=== PATIENT | male | born 1985 | race Caucasian/White ===

== ENCOUNTER 2025-01-30 11:12 | Outpatient (OUT) | payer SELFPAY ==
--- OUTSIDE RECORDS SUMMARY | 2025-01-26 08:20 | XMS_ITS | Encounter Summary ---
Author Organization [facility] Address [address] [place] [address] Care Team Providers Care Hotel Controller Name Role Phone Vimal Shaw MD Unavailable [phone] Vimal Shaw MD Primary Care Provider [phone] Nela Munguia NP Unavailable [phone] Reason for Referral * Consultation (Routine) - Authorized Specialty Diagnoses / Procedures Referred By Edgar valenzuela Referred To Contact Orthopaedic Surgery Diagnoses Acute pain of left knee Nela Munguia NP [address] [place] [address] Phone: tel: fax: Parminder Owen MD [facility] Referrals ONLY fax: Referral ID Status Reason Start Date Expiration Date Visits Requested Visits Authorized [id number] Authorized Specialty Services Required 01/26/2025 07/25/2025 1 1 Encounter Details Date Type Department Care Team (Late st Contact Info) Description 01/26/2025 8:20 AM EDT Office Visit [facility] [address] [place] [address] Nela Munguia NP [address] [place] [address] Acute pain of left knee (Primary Dx); Spondylosis without myelopathy or radiculopathy, lumbosacral region Social History Tobacco Use Types Packs/Day Years Used Date Smoking Tobacco: Every Day Cigars Smokeless Tobacco: Never Alcohol Use Standard Drinks/Week Comments Not Currently 0 (1 standard drink = 0.6 oz pure alcohol) caffeine: more than 4 cups a day AUDIT-C Answer Date Recorded Q1: How often do you have a drink containing alcohol? Never 03/02/2023 Q2: How many drinks containi ng alcohol do you have on a typical day when you are drinking? Patient does not drink Q3: How often do you have si x or more drinks on one occasion? Never 03/02/2023 PHQ-2 Answer Date Recorded Patient Health Questionnaire-2 Score 0 08/24/2023 Sex and Gender Information Value Date Recorded Sex Assigned at Not on file Legal Sex Male 7:16 PM EDT Gender Identity Male 08/06/2022 7:16 PM EDT Sexual Orientation Not on file documented as of this encounter Last Filed Vital Signs Vital Sign Reading Time Taken Comments Blood Pressure 140/78 01/26/2025 8:18 AM EDT Pulse 87 01/26/2025 8:18 AM EDT Temperature 36.6 C (97.9 F) 01/26/2025 8:18 AM EDT Respiratory Rate - - Oxygen Saturation 98% 01/26/2025 8:18 AM EDT Inhaled Oxygen Concentration - - Weight 124 kg (274 lb) 01/26/2025 8:18 AM EDT Height 188 cm (6' 2 ) 01/26/2025 8:18 AM EDT Body Mass Index 35.18 01/26/2025 8:18 AM EDT documented in this encounter Progress Notes * Nela Munguia NP - 01/26/2025 8:20 AM EDT Family Medicine Note Subjective: Chief Complaint: Left knee pain HPI: Jamar Madina Petersherve presents to the office today with complaints of left knee pain. 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 He did go to the emergency department due to pain of the right lower extremity and was ultimately discharged with Zanaflex. The patientstates that several days later he started to notice pain of the left knee. Gradually the pain became so bad that he started to wear a knee brace that he had at home. He has been taking Tylenol and Zanaflex with mild relief. He reports that the pain is most severe when walking down the stairs. Additionally, he admits to instability of the knee when ambulating. Current Outpatient Medications: amLODIPine-benazepril (Lotrel) 10-40 MG capsule, Take 1 capsule by mouth 1 (one) time each day at the same time, Disp: 90 capsule, Rfl: 1 cyclobenzaprine (Flexeril) 10 MG tablet, Take 10 mg by mouth 3 (three) times a day as needed for muscle spasms, Disp: , Rfl: DULoxetine (Cymbalta) [address] capsule, Take 1 capsule (60 mg) by mouth 1 (one) time each day at the same time, Disp: 90 capsule, Rfl: 1 EPINEPHrine (EpiPen 2-Abram) 0.3 MG/0.3ML injection syringe, inject (0.3MG) by intramuscular route once as needed for anaphylaxis Injection as needed for 30 days, Disp: , Rfl: QUEtiapine (SEROquel) 100 MG tablet, Take 1 tablet (100 mg) by mouth at bedtime, Disp: 30 tablet, Rfl: 5 meloxicam (Mobic) 7.5 MG tablet, Take 1 tablet (7.5 mg) by mouth Daily, Disp: 30 tablet, Rfl: 1 tiZANidine (Zanaflex) 4 MG tablet, Take 1 tablet (4 mg) by mouth in the morning and 1 tablet (4 mg)in the evening and 1 tablet (4 mg) before bedtime., Disp: 90 tablet, Rfl: 1 Medical History: Past Medical History: Diagnosis Date Appendicitis Arthritis Bulging of cervical intervertebral disc Class 2 obesity 04/30/2020 Closed fracture of coccyx (HCC) 01/16/2025 Closed right malleolar fracture 01/16/2025 Edema of hand 01/16/2025 Elbow fracture 01/16/2025 Fall 01/16/2025 Headache 01/16/2025 Hypertension Kidney stones Left ankle sprain 01/16/2025 Left knee sprain 01/16/2025 Leukocytosis 01/16/2025 Lunotriquetral ligament tear 01/16/2025 Migraine Migraine without aura and without status migrainosus, not intractable 10/03/2019 Nausea and vomiting 01/16/2025 Pain in urethra 01/16/2025 Paresthesias in left hand 01/16/2025 Perforated right tympanic membrane on examination 01/16/2025 Postoperative pain of extremity 01/16/2025 Primary insomnia 02/15/2019 Right ankle sprain 01/16/2025 S/P ligament repair 01/16/2025 Seasonal allergies Sinusitis 12/01/2022 Strain of muscle, fascia and tendon of long head of biceps, right arm, initial encounter 01/16/2025 Tonsillitis Urinary catheter in place 01/16/2025 Allergies: Allergies Allergen Reactions Bee Pollen Anaphylaxis Ibuprofen Unknown, Hives and Other Onion Hives Social History: Tobacco Use: Tobacco Use: High Risk (09/07/2024) Patient History Smoking Tobacco Use: Every Day Smokeless Tobacco Use: Never Passive Exposure: Not on file Objective: Vitals: 01/26/25 0818 BP: 140/78 Pulse: 87 Temp: 97.9 ??F TempSrc: Temporal SpO2: 98% Weight: 274 lb Height: 6' 2 Physical Exam Vitals and nursing note reviewed. Constitutional: General: He is not in acute distress. Appearance: Normal appearance. He is not ill-appearing. HENT: Head: Normocephalic and atraumatic. Right Ear: External ear normal. Left Ear: External ear normal. Nose: Nose normal. Mouth/Throat: Mouth: Mucous membranes are moist. Eyes: Extraocular Movements: Extraocular movements intact. Pupils: Pupils are equal, round, and reactive to light. Neck: Vascular: No carotid bruit. Cardiovascular: Rate and Rhythm: Normal rate. Pulses: Normal pulses. Heart sounds: No murmur heard. Pulmonary: Effort: Pulmonary effort is normal. Breath sounds: No wheezing, rhonchi or rales. Abdominal: General: Bowel sounds are normal. There is no distension. Tenderness: There is no abdominal tenderness. Musculoskeletal: Cervical back: Normal range of motion. Left knee: Swelling present. No erythema, ecchymosis, lacerations or crepitus. Decreased range of motion. Tenderness present over the MCL. Normal alignment. Skin: General: Skin is warm and dry. Neurological: General: No focal deficit present. Mental Status: He is alert and oriented to person, place, and time. Psychiatric: Mood and Affect: Mood normal. Behavior: Behavior normal. Judgment: Judgment normal. Assessment: Assess/Plan Problem List Items Addressed This Visit Spondylosis without myelopathy or radiculopathy, lumbosacral region Relevant Medications tiZANidine (Zanaflex) 4 MG tablet Other Visit Diagnoses Acute pain of left knee - Primary Relevant Medications meloxicam (Mobic) 7.5 MG tablet Other Relevant Orders Ambulatory referral to Orthopaedic Surgery The patient was in an accident during a demolition derby and reports left knee pain. He has been utilizing a brace that he had at home to assist with stability and pain. He has been using Zanaflex and Tylenol with mild relief. We did discuss adding Meloxicam to his medication regimen to assist withpain and inflammation. He reportedly had an allergic reaction to ibuprofen in the past, however hasbeen able to tolerate Advil and Aleve with no issues. He will also be referred to orthopaedic surgery for further evaluation. He denies further complaints or concerns at this time. Follow-up: Follow up in about 2 weeks (around 02/09/2025), or if symptoms worsen or fail to improve. documented in this encounter Plan of Treatment Upcoming Encounters Date Type Department Care Team (Late st Contact Info) Description 03/08/2025 1:20 PM EDT Office Visit [facility] [address] [place] [address] Nela Munguia NP [address] [place] [address] Scheduled Referrals Name Type Priority Associated Diagnoses Order Schedule Ambulatory referral to Orthopaedic Surgery Outpatient Referral Routine Acute pain of left knee Expected: 01/26/2025 (Approximate), Expires: 07/26/2025 documented as of this encounter Visit Diagnoses Diagnosis Acute pain of left knee- Primary Spondylosis without myelopathy or radiculopathy, lumbosacral region documented in this encounter Care Teams Hotel Controller Relationship Specialty Start Date End Date Vimal Shaw MD [address] [place] [address] PCP - Medical [facility] 10/23/22 05/24/99 Vimal Shaw MD [address] [place] [address] PCP - General Family Medicine 11/30/22 Nela Munguia NP [address] [place] [address] Nurse Practitioner Pulmonary Disease 07/22/23 documented as of this encounter
--- NOTE | 2025-01-30 | XR_ITS ---
The [address] [address] Patient Name: POPEYE HOGAN MRN: [id number] date: 1985 Sex: M Assigned Patient Location: RAD Current Patient Location: [facility] Accession/Order Number: [id number] Exam Date: 01/30/2025 11:40 Report Date: 01/30/2025 12:20 At the request of: MARLON SCHAFFER DO Procedure: XR knee LT 4V LEFT KNEE - 4 views COMPARISON: None Clinical data: Left knee pain around the patella and medially following injury month ago. AP, lateral, internal oblique and patellar views were obtained. No acute fracture is identified. No dislocation or patellar subluxation is seen. There is no disproportionate joint space narrowing. There is minimal spurring at the patellofemoral. There is a tiny enthesophyte at the insertion of quadriceps tendon. A small amount of joint fluid is seen. There is no focal soft tissue swelling. XR/XR knee LT 4V IMPRESSION: NO ACUTE BONY FINDINGS. Impression dictated by: Julianna Marte M.D. 01/30/2025 12:20 PM Dictation Location: [place] [address] Electronically authenticated by: [id number] Y Date: 01/30/2025 12:20
--- OUTSIDE RECORDS SUMMARY | 2025-01-30 11:14 | XMS_ITS | Encounter Summary ---
Author Organization [facility] Address [address] [place] [address] Care Team Providers Care Electronic Component Processor Name Role Phone Vimal Shaw MD Unavailable Vimal Shaw MD Primary Care Provider [phone] Sommer Gonzalez NP Unavailable Nela Munguia GRINDER SET UP OPERATOR JIG Unavailable [phone] Encounter Details Date Type Department Care Team (Late st Contact Info) Description 08/26/2023 Abstract [facility] [address] [place] [address] Vimal Shaw MD [address] [place] [address] Social History Tobacco Use Types Packs/Day Years [...] on file documented as of this encounter Plan of Treatment Upcoming Encounters Date Type Department Care Team (Late st Contact Info) Description 03/08/2025 1:20 PM EDT Office Visit [facility] [address] [place] [address] Nela Munguia NP [address] [place] [address] documented as of this encounter Visit Diagnoses Not on filedocumented in this encounter Care Teams Electronic Component Processor Relationship Specialty Start Date End Date Vimal Shaw MD [address] [place] [address] PCP - Medical [place] [employer] 10/23/22 05/24/99 Vimal Shaw MD [address] [place] [address] PCP - General Family Medicine 11/30/22 Sommer Gonzalez NP [address] [place] [address] Nurse Practitioner Family Medicine 07/22/23 09/03/24 Nela Munguia NP [address] [place] [address] Nurse Practitioner Pulmonary Disease 07/22/23 documented as of this encounter
--- OUTSIDE RECORDS SUMMARY | 2025-01-30 11:14 | XMS_ITS | Encounter Summary ---
Author Organization [facility] Address [address] [facility] [place] [address] Care Team Providers Care Poker Prop Player Name Role Phone Vimal Shaw MD Unavailable [phone] Vimal Shaw MD Primary Care Provider [phone] Sommer Gonzalez NP Unavailable Nela Munguia NP Unavailable [phone] Encounter Details Date Type Department Care Team (Late st Contact Info) Description 09/24/2023 Abstract [facility] [address] [place] [address] Sommer Gonzalez NP [address] [facility] [place] [address] Social History Tobacco Use Types Packs/Day Years [...] [facility] [address] [place] [address] Nela Munguai NP [address] [place] [address] documented as of this encounter Visit Diagnoses Not on filedocumented in this encounter Care Teams Poker Prop Player Relationship Specialty Start Date End Date Vimal Shaw MD [address] [place] [address] PCP - Medical [place] [employer] 10/23/22 05/24/99 Vimal Shaw MD [address] [place] [address] PCP - General Family Medicine 11/30/22 Sommer Gonzalez NP [address] [place] [address] Nurse Practitioner Family Medicine 07/22/23 09/03/24 Nela Munguia NP [address] [place] [address] Nurse Practitioner Pulmonary Disease 07/22/23 documented as of this encounter
--- OUTSIDE RECORDS SUMMARY | 2025-01-30 11:14 | XMS_ITS | Encounter Summary ---
Author Organization [facility] Address [address] [facility] [place] [address] Care Team Providers Care Framing Consultant Name Role Phone Vimal Shaw MD Unavailable [phone] Vimal Shaw MD Primary Care Provider Sommer Gonzalez NP Unavailable Nela Munguia BAR ROLLER Unavailable [phone] Encounter Details Date Type Department Care Team (Late st Contact Info) Description 07/03/2024 External Result Encounter [facility] External Department Unsolicited Phoebe Eaton, BAR ROLLER [address] [place] [address] Social History Tobacco Use Types Packs/Day Years [...] Description 03/08/2025 1:20 PM EDT Office Visit [facility] [address] [place] [address] Nela Munguia NP [address] [place] [phone] documented as of this encounter Procedures Procedure Name Priority Date/Time Associated Diagnosis Comments XR ANKLE 3+ VIEWS RIGHT 07/03/2024 4:15 PM EST documented in this encounter Results * XR ankle 3+ views right (07/03/2024 4:15 PM EST) Anatomical Region Laterality Modality Lower Extremities, Ankle Right Radiogr aphic Imaging 07/03/2024 4:15 PM EST Impressions 07/03/2024 4:18 PM EST There is a minimally displaced fracture at the tip of the lateral malleolus with accompanying soft tissue swelling. Impression dictated by: Ish Choudhary M.D.07/03/2024 4:15 PM Dictation Location: [place] [address] Transcribed By: [facility] 07/03/24 161 Dictated By: Ish Choudhary II, MD 07/03/241614 Signed By: <Electronically signed by Ish Choudhary II, MD in OV> 07/03/24 1615 Narrative 07/03/2024 4:18 PM EST [facility] Main [address] [address] XRay Report Signed Patient: Jamar Yu MR#: [id number] : 1985 Acct:[id number] Age/Sex: 39 / M ADM Date: 07/03/24 Loc: ER Room: Type: PRE ER Attending Dr: Copies to: Phoebe Eaton APRN Ordering Provider: Phoebe Eaton APRN Date of Service: 07/03/24 XR/XR ankle RT min 3V*: Extremity Injury, Lower XR ankle RT min 3V* 07/03/2024 3:48 PM SIGNS AND SYMPTOMS: Pain and swelling to lateral aspect of the right ankle PROTOCOL: Frontal, lateral, and oblique radiographs of the right ankle COMPARISON: None FINDINGS: There is soft tissue swelling over the lateral malleolus. There is a minimally displaced fracture at the tip of the lateral malleolus. The ankle mortise is preserved. There is plantar and Achilles surface calcaneal spurring. XR/XR ankle RT min 3V* Procedure Note Ish Choudhary MD - 07/03/2024 [facility] Main [place] [address] [place] [address] XRay Report Signed Patient: Jamar Yu BMR#: [id number] : 1985Acct:[id number] Age/Sex: 39 / MADM Date: 07/03/24 Loc: ER Room:Type: PRE ER Attending Dr: Copies to: Phoebe Eaton APRN Ordering Provider: Phoebe Eaton APRN Date of Service: 07/03/24 XR/XR ankle RT min 3V*: Extremity Injury, Lower XR ankle RT min 3V* 07/03/2024 3:48 PM SIGNS AND SYMPTOMS: Pain and swelling to lateral aspect of the right ankle PROTOCOL: Frontal, lateral, and oblique radiographs of the right ankle COMPARISON: None FINDINGS: There is soft tissue swelling over the lateral malleolus. There is aminimally displaced fracture at the tip of the lateral malleolus. The ankle mortise is preserved.There is plantar and Achilles surface calcaneal spurring. XR/XR ankle RT min 3V* IMPRESSION: There is a minimally displaced fracture at the tip of the lateralmalleolus with accompanying soft tissue swelling. Impression dictated by: Ish Choudhary M.D.07/03/2024 4:15 PM Dictation Location: [place] [address] Transcribed By: [facility] 07/03/24 1615 Dictated By: Ish Choudhary II, MD 07/03/24 1615 Signed By: <Electronically signed by Ish Choudhary II, MD inOV> 07/03/24 1615 Phoebe Mayo Uma BAR ROLLER IMG XR PROCEDURES Final Resu lt documented in this encounter Visit Diagnoses Not on filedocumented in this encounter Care Teams Framing Consultant Relationship Specialty Start Date End Date Vimal Shaw MD [address] [place] [address] PCP - Medical [place] [employer] 10/23/22 05/24/99 Vimal Shaw MD [address] [place] [address] PCP - General Family Medicine 11/30/22 Sommer Gonzalez NP [address] [place] [address] Nurse Practitioner Family Medicine 07/22/23 09/03/24 Nela Munguia NP [address] [place] [address] Nurse Practitioner Pulmonary Disease 07/22/23 documented as of this encounter
--- OUTSIDE RECORDS SUMMARY | 2025-01-30 11:14 | XMS_ITS | Encounter Summary ---
Author Organization [facility] Address [address] [place] [address] Care Team Providers Care Instrument Repairer Name Role Phone Vimal Shaw MD Unavailable [phone] Vimal Shaw MD Primary Care Provider [phone] Nela Munguia EMPLOYMENT SERVICE SPECIALIST Unavailable [phone] Encounter Details Date Type Department Care Team (Late st Contact Info) Description 01/16/2025 Patient Outreach [facility] POPULATION [facility] [address] [place] [address] Shilpa Justice LSW [address] [place] [address] Social History Tobacco Use Types Packs/Day Years [...] on file documented as of this encounter Progress Notes * [facility] - 01/16/2025 3:35 PM EDT Images from the original note were not included. 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 Pt was worried since he has a hx of compartment syndrome. Contacted pt for ER TCM and he states he is doing better just sore. Reports he was having spasms in leg so wanted to get checked. Reports xrays of knee, ankle and leg completed. He was given Ativan and Dilaudid in ER and rx for Flexeril for discharge. He is taking this and reports it's helping. Declines need for ERFU appt at this time stating he will call the office later this week if he is not feeling better. Reports only scratches and no open deep wounds. Denies need for CCM. Flowsheet Row [facility] Information ED, Hospital or Detention Facility Discharge? 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 Not applicable [Forwarding to clinicalto add rx] Is the patient having any side effects they believe may be caused by any medication additions or changes? No Does the patient have all medications ordered at discharge? Yes Nursing Interventions No intervention needed Appointments Does the patient have a primary care provider? 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 Pt was worried since he has a hx of compartment syndrome. Contacted pt for ER TCM and he states he is doing better just sore. Reports he was having spasms in leg so wanted to get checked. Reports xrays of knee, ankle and leg completed. He was given Ativan and Dilaudid in ER and rx for Flexeril for discharge. He is taking this and reports it's helping. Declinesneed for ERFU appt at this time stating he will call the office later this week if he is not feeling better. Call End Time 1550 * Ary Miller RN - 01/16/2025 3:35 PM EDT Flexeril added * Nela Munguia NP - 01/16/2025 3:35 PM EDT Noted documented in this encounter Miscellaneous Notes * Addendum Note - Ayr Miller RN - 01/16/2025 3:35 PM EDTAddended by: ARY MILLER on: 01/16/2025 04:02 PM Modules accepted: Orders documented in this encounter Plan of Treatment Upcoming Encounters Date Type Department Care Team (Late st Contact Info) Description 03/08/2025 1:20 PM EDT Office Visit [facility] [address] [place] [address] Nela Munguia NP [address] [place] [address] documented as of this encounter Visit Diagnoses Diagnosis Hypertension, unspecified type- Primary Vitamin D deficiency documented in this encounter Care Teams Instrument Repairer Relationship Specialty Start Date End Date Vimal Shaw MD [address] [place] [address] PCP - Medical [place] [employer] 10/23/22 05/24/99 Vimal Shaw MD [address] [place] [address] PCP - General Family Medicine 11/30/22 Nela Munguia NP [address] [place] [address] Nurse Practitioner Pulmonary Disease 07/22/23 documented as of this encounter
--- OUTSIDE RECORDS SUMMARY | 2025-01-30 11:14 | XMS_ITS | Encounter Summary ---
Author Organization [facility] Address [address] [place] [address] Care Team Providers Care Litigation Counsel Name Role Phone Vimal Shaw MD Unavailable [phone] Vimal Shaw MD Primary Care Provider [phone] Nela Munguia WATCH TECHNICIAN Unavailable [phone] Encounter Details Date Type Department Care Team (Late st Contact Info) Description 01/16/2025 Abstract [facility] [address] [place] [address] Vimal Shaw MD [address] [place] [address] Social History Tobacco Use Types Packs/Day Years [...] Visit [facility] [address] [place] [address] Nela Munguia, WATCH TECHNICIAN [address] [place] [address] documented as of this encounter Visit Diagnoses Not on filedocumented in this encounter Care Teams Litigation Counsel Relationship Specialty Start Date End Date Vimal Shaw MD [address] [place] [address] PCP - Medical [place] [employer] 10/23/22 05/24/99 Vimal Shaw MD [address] [place] [address] PCP - General Family Medicine 11/30/22 Nela Munguia WATCH TECHNICIAN [address] [place] [address] Nurse Practitioner Pulmonary Disease 07/22/23 documented as of this encounter
--- OUTSIDE RECORDS SUMMARY | 2025-01-30 11:14 | XMS_ITS | Encounter Summary ---
Author Organization [facility] Address [address] [place] [place] [address] Care Team Providers Care Refuge Manager Name Role Phone Vimal Shaw MD Unavailable Vimal Shaw MD Primary Care Provider [phone] Sommer Gonzalez NP Unavailable Nela Munguia UNDERCOAT SPRAYER Unavailable [phone] Encounter Details Date Type Department Care Team (Late st Contact Info) Description 07/04/2024 Abstract [facility] [address] [place] [address] Vimal Shaw MD [address] [place] [address] Social History Tobacco Use Types Packs/Day Years [...] [facility] [address] [place] [address] Nela Munguia NP [address] [place] [address] documented as of this encounter Visit Diagnoses Not on filedocumented in this encounter Care Teams Refuge Manager Relationship Specialty Start Date End Date Vimal Shaw MD [address] [place] [address] PCP - Medical [place] [employer] 10/23/22 05/24/99 Vimal Shaw MD [address] [place] [place] [address] PCP - General Family Medicine 11/30/22 Sommer Gonzalez NP [address] [place] [address] Nurse Practitioner Family Medicine 07/22/23 09/03/24 Nela Munguia NP [address] [place] [address] Nurse Practitioner Pulmonary Disease 07/22/23 documented as of this encounter
--- OUTSIDE RECORDS SUMMARY | 2025-01-30 11:14 | XMS_ITS | Clinical Summary ---
Author Organization [facility] Healthcare Address [address] [place] [address] Care Team Providers Care Tapper Bit Name Role Phone Vimal Shaw MD Unavailable [phone] Vimal Shaw MD Primary Care Provider [phone] Nela Munguia BUSINESS DEVELOPMENT ENGINEER Unavailable [phone] Allergies Active Allergy Reactions Criticality Noted Date Comments Bee Pollen Anaphylaxis High 08/18/2022 Ibuprofen Unknown,Hives,Other 04/03/2014 Onion Hives 08/18/2022 Medications EPINEPHrine (EpiPen 2-Abram) 0.3 MG/0.3ML injection syringe inject (0.3MG) by intramuscular route once as needed for anaphylaxis Injection as needed for 30 days 10/07/19 13 Active amLODIPine-juan manuel zepril (Lotrel) 10-40 MG capsuleIndicati ons:Hypertensio n, unspecified type Take 1 capsule by mouth 1 (one) time each day at the same time 90 capsule 1 09/08/19 25 025 Active DULoxetine (Cymbalta) [address] capsuleIndicati ons:Anxiety Take 1 capsule (60 mg) by mouth 1 (one) time each day at the same time 90 capsule 1 09/08/19 025 Active QUEtiapine (SEROquel) 100 MG tabletIndicatio ns:Primary insomnia Take 1 tablet (100 mg) by mouth at bedtime 30 tablet 5 10/11/19 25 025 Active cyclobenzaprine (Flexeril) 10 MG tablet Take 10 mg by mouth 3 (three) times a day as needed for muscle spasms 01/16/20 Active meloxicam (Mobic) 7.5 MG tabletIndicatio ns:Acute pain of left knee Take 1 tablet (7.5 mg) by mouth Daily 30 tablet 1 01/27/20 25 025 Active tiZANidine (Zanaflex) 4 MG tabletIndicatio ns:Spondylosis without myelopathy or radiculopathy, lumbosacral region Take 1 tablet (4 mg) by mouth in the morning and 1 tablet (4 mg) in the evening and 1 tablet (4 mg) before bedtime. 90 tablet 1 01/27/20 025 Active tiZANidine (Zanaflex) 4 MG tabletIndicatio ns:Spondylosis without myelopathy or radiculopathy, lumbosacral region Take 1 tablet (4 mg) by mouth in the morning and 1 tablet (4 mg) in the evening and 1 tablet (4 mg) before bedtime. 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 without myelopat hy or radiculopathy, lumbosacral region 12/01/2022 Intractable migraine without aura and with status migrainosus 07/13/2020 Otitis externa in other dise ases classified elsewhere, right ear 03/09/2020 Intractable episodic cluster headache 10/03/2019 Other chronic pain 09/16/2019 Vitamin D deficiency 08/30/2019 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 07/08/2019 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 Migraine 04/23/2018 Morbid obesity 11/12/2017 Anxiety 09/22/2017 Insomnia 09/22/2017 Hypertriglyceridemia 10/08/2016 Hypertension 02/28/2016 Resolved Problems Problem Noted Date Diagnosed Date Resolved Date Closed fracture of coccyx 01/16/2025 Closed right malleolar fracture 01/16/2025 01/16/2025 Edema of hand 01/16/2025 01/16/2025 Paresthesias in left hand 01/16/2025 Elbow fracture 01/16/2025 01/16/2025 Fall 01/16/2025 01/16/2025 Laceration of finger of left hand without foreign body without damage to nail 01/16/2025 08/09/2024 Left knee sprain 01/16/2025 01/16/2025 Leukocytosis 01/16/2025 01/16/2025 Lunotriquetral ligament tear 01/16/2025 01/16/2025 Pain in urethra 01/16/2025 01/16/2025 Perforated right tympanic me mbrane on examination 01/16/2025 01/16/2025 Headache 01/16/2025 01/16/2025 Postoperative pain of extremity 01/16/2025 01/16/2025 Left ankle sprain 01/16/2025 01/16/2025 Right ankle sprain 01/16/2025 S/P ligament repair 01/16/2025 01/17/20 Strain of muscle, fascia and tendon of long head of biceps, right arm, initial encounter 01/16/2025 01/16/[address] 01/16/2025 Nausea and vomiting 01/16/2025 01/17/20 Right lower quadrant abdominal pain 01/16/2025 01/16/2025 Obesity (BMI 30-39.9) 12/01/20222022 Obesity, morbid, BMI 40.0-49.9 12/01/2022 12/01/2022 Sinusitis 12/01/2022 12/01/2022 Class 2 obesity 04/30/2020 12/01/2022 Migraine without aura and wi thout status migrainosus, not intractable 10/03/2019 12/01/2022 Primary insomnia 02/15/2019 12/01/2022 Nausea 03/11/2017 12/01/2022 Right upper quadrant pain 03/11/2017 Class 2 obesity 02/18/2017 12/01/2022 Sprain of MCP joint of hand 04/04/2014 12/01/2022 Encounters Date Type Department Care Team Description 01/26/2025 8:20 AM EDT Office Visit [facility] [address] [place] [address] Nela Munguia NP Acute pain of left knee (Primary Dx); Spondylosis without myelopathy or radiculopathy, lumbosacral region 01/26/2025 Bamboo flowsheet [facility] [address] [place] [address] Nela Munguia NP 01/26/2025 Travel 01/20/2025 Refill [facility] [address] [place] [address] Nela Munguia NP Spondylosis without myelopathy or radiculopathy, lumbosacral region 01/16/2025 Patient Outreach [facility] [address] [place] [address] Shilpa Justice LSW 01/16/2025 Telephone [facility] [address] [place] [address] Vimal Shaw MD ER Follow-up 01/16/2025 Abstract [facility] [address] [place] [address] Vimal Shaw MD 11/17/2024 Refill [facility] [address] [place] [address] Cecile De La Rosa MA Spondylosis without myelopathy or radiculopathy, lumbosacral region from Last 3 Months Immunizations Immunization Administration Dates Next Due Influenza, seasonal, intradermal, preservative f ree 03/31/2018,02/18/2017 Tdap 10/10/2018 Family History Medical History Relation Name Comments Hypertension Father Stroke Mother Relation Name Status Comments Father Alive Mother Alive Social History Tobacco Use Types Packs/Day Years Used Date Smoking Tobacco: Every Day Cigars Smokeless Tobacco: Never Tobacco Cessation:Ready to Q uit: Not Asked; Counseling Given: Not Answered Alcohol Use Standard Drinks/Week Comments Not Currently [...] PM EDT Sexual Orientation Not on file Last Filed Vital Signs Vital Sign Reading Time Taken Comments Blood Pressure 140/78 01/26/2025 8:18 AM EDT Pulse 87 01/26/2025 8:18 AM EDT Temperature 36.6 C (97.9 F) 01/26/2025 8:18 AM EDT Respiratory Rate 20 09/07/2024 1:32 PM EDT Oxygen Saturation 98% 01/26/2025 8:18 AM EDT Inhaled Oxygen Concentration - - Weight 124 kg (274 lb) 01/26/2025 8:18 AM EDT Height 188 cm (6' 2 ) 01/26/2025 8:18 AM EDT Body Mass Index 35.18 01/26/2025 8:18 AM EDT Plan of Treatment Upcoming Encounters Date Type Department Care Team (Late st Contact Info) Description 03/08/2025 1:20 PM EDT Office Visit [facility] [address] [place] [address] Nela Munguia, BUSINESS DEVELOPMENT ENGINEER [address] [place] [address] Health Maintenance Due Date Last Done Comments Influenza Vaccine (#1) 2025 03/31/2018, 2016 Postponed from 01/23/2025 (Patient Refused) Insurance [employer] Care Teams Tapper Bit Relationship Specialty Start Date End Date Vimal Shaw MD [address] [place] [address] PCP - Medical [place] [employer] 10/23/22 05/24/99 Vimal Shaw MD [address] [place] [address] PCP - General Family Medicine 11/30/22 Nela Munguia BUSINESS DEVELOPMENT ENGINEER [address] [place] [address] Nurse Practitioner Pulmonary Disease 07/22/23
--- OUTSIDE RECORDS SUMMARY | 2025-01-30 11:14 | XMS_ITS | Encounter Summary ---
Author Organization [facility] Address [address] [facility] [place] [address] Care Team Providers Care Canine Enforcement Officer Name Role Phone Vimal Shaw MD Unavailable [phone] Vimal Shaw MD Primary Care Provider [phone] Sommer Gonzalez NP Unavailable Nela Munguia NP Unavailable [phone] Encounter Details Date Type Department Care Team (Late st Contact Info) Description 11/19/2023 Abstract [facility] [address] [place] [address] Sommer Gonzalez NP [address] [facility] [place] [address] Social History Tobacco Use Types Packs/Day Years [...] [facility] [address] [place] [address] Nela Munguia NP [address] [place] [address] documented as of this encounter Visit Diagnoses Not on filedocumented in this encounter Care Teams Canine Enforcement Officer Relationship Specialty Start Date End Date Vimal Shaw MD [address] [place] [address] PCP - Medical [place] [employer] 10/23/22 05/24/99 Vimal Shaw MD [address] [place] [address] PCP - General Family Medicine 11/30/22 Sommer Gonzalez NP [address] [place] [address] Nurse Practitioner Family Medicine 07/22/23 09/03/24 Nela Munguia NP [address] [place] [address] Nurse Practitioner Pulmonary Disease 07/22/23 documented as of this encounter
--- OUTSIDE RECORDS SUMMARY | 2025-01-30 11:14 | XMS_ITS | Encounter Summary ---
Author Organization [facility] Address [address] [place] [address] Care Team Providers Care Lap Layer Name Role Phone Vimal Shaw MD Unavailable [phone] Vimal Shaw MD Primary Care Provider [phone] Nela Munguia PAINTER SET Unavailable [phone] Reason for Visit * Reason Onset Date Comments ER Follow-up 01/16/2025 Encounter Details Date Type Department Care Team (Late st Contact Info) Description 01/16/2025 Telephone [facility] [address] [place] [address] Vimal Shaw MD [address] [place] [address] ER Follow-up Social History Tobacco Use Types Packs/Day Years [...] on file documented as of this encounter Miscellaneous Notes * Telephone Encounter - Cecile De La Rosa MA - 01/17/2025 3:31 PM EDT CCM completed. 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 [place] accident documented in this encounter Plan of Treatment Upcoming Encounters Date Type Department Care Team (Late st Contact Info) Description 03/08/2025 1:20 PM EDT Office Visit [facility] [address] [place] [address] Nela Munguia PAINTER SET [address] [place] [id number] documented as of this encounter Visit Diagnoses Not on filedocumented in this encounter Care Teams Lap Layer Relationship Specialty Start Date End Date Vimal Shaw MD [address] [place] [id number] PCP - Medical [place] [employer] 10/23/22 05/24/99 Vimal Shaw MD [address] [place] [id number] PCP - General Family Medicine 11/30/22 Nela Munguia NP [address] [place] [id number] Nurse Practitioner Pulmonary Disease 07/22/23 documented as of this encounter
--- OUTSIDE RECORDS SUMMARY | 2025-01-30 11:14 | XMS_ITS | Encounter Summary ---
Author Organization [facility] Address [address] [place] [address] Care Team Providers Care Welt Sole Layer Name Role Phone Vimal Shaw MD Unavailable [phone] Vimal Shaw MD Primary Care Provider [phone] Sommer Gonzalez NP Unavailable Nela Munguia STATIONARY ENGINEER SUPERVISOR Unavailable [phone] Encounter Details Date Type Department Care Team (Late st Contact Info) Description 07/28/2023 Abstract [facility] [address] [place] [address] Cecile De La Rosa MA Social History Tobacco Use Types Packs/Day Years [...] Date Recorded Patient Health Questionnaire-2 Score 0 12/01/2022 Sex and Gender Information Value Date Recorded Sex Assigned at Not on file Legal Sex Male 7:16 PM EDT Gender Identity Male 08/06/2022 7:16 PM EDT Sexual Orientation Not on file documented as of this encounter Plan of Treatment Upcoming Encounters Date Type Department Care Team (Late st Contact Info) Description 03/08/2025 1:20 PM EDT [facility] [address] [place] [address] Nela Munguia, STATIONARY ENGINEER SUPERVISOR [address] [place] [address] documented as of this encounter Visit Diagnoses Not on filedocumented in this encounter Care Teams Welt Sole Layer Relationship Specialty Start Date End Date Vimal Shaw MD [address] [place] [address] PCP - Medical [place] [employer] 10/23/22 05/24/99 Vimal Shaw MD [address] [place] [address] PCP - General Family Medicine 11/30/22 Sommer Gonzalez NP [address] [place] [address] Nurse Practitioner Family Medicine 07/22/23 09/03/24 Nela Munguia NP [address] [place] [address] Nurse Practitioner Pulmonary Disease 07/22/23 documented as of this encounter
--- OUTSIDE RECORDS SUMMARY | 2025-01-30 11:14 | XMS_ITS | Encounter Summary ---
Author Organization [facility] Address [address] [place] [address] Care Team Providers Care Lead Burner Supervisor Name Role Phone Vimal Shaw MD Unavailable [phone] Vimal Shaw MD Primary Care Provider [phone] Nela Munguia TRAVEL CONSULTANT Unavailable [phone] Encounter Details Date Type Department Care Team (Late st Contact Info) Description 01/26/2025 Bamboo flowsheet [facility] [address] [place] [address] Nela Munguia TRAVEL CONSULTANT [address] [place] [address] Social History Tobacco Use Types Packs/Day Years [...] [facility] [address] [place] [address] Nela Munguia, TRAVEL CONSULTANT [address] [place] [address] documented as of this encounter Visit Diagnoses Not on filedocumented in this encounter Care Teams Lead Burner Supervisor Relationship Specialty Start Date End Date Vimal Shaw MD [address] [place] [address] PCP - Medical [place] [employer] 10/23/22 05/24/99 Vimal Shaw MD [address] [place] [address] PCP - General Family Medicine 11/30/22 Nela Munguia, TRAVEL CONSULTANT [address] [place] [address] Nurse Practitioner Pulmonary Disease 07/22/23 documented as of this encounter
--- OUTSIDE RECORDS SUMMARY | 2025-01-30 11:14 | XMS_ITS | Encounter Summary ---
Author Organization [facility] Address [address] [place] [place] [address] Care Team Providers Care Tire Service Supervisor Name Role Phone Vimal Shaw MD Unavailable [phone] Vimal Shaw MD Primary Care Provider [phone] Nela Munguia WASTEWATER DESIGN ENGINEER Unavailable [phone] Encounter Details Date Type Department Care Team (Latest Contact Info) Description 01/26/2025 Travel Social History Tobacco Use Types Packs/Day Years [...] 03/08/2025 1:20 PM EDT Office Visit [facility] [address] [place] [address] LaNela horan NP [address] [place] [address] documented as of this encounter Visit Diagnoses Not on filedocumented in this encounter Care Teams Tire Service Supervisor Relationship Specialty Start Date End Date Vimal Shaw MD [address] [place] [address] PCP - Medical [place] [employer] 10/23/22 05/24/99 Vimal Shaw MD [address] [place] [address] PCP - General Family Medicine 11/30/22 Nela Munguia NP [address] [place] [address] Nurse Practitioner Pulmonary Disease 07/22/23 documented as of this encounter
--- OUTSIDE RECORDS SUMMARY | 2025-01-30 11:14 | XMS_ITS ---
Author Organization [facility] Address [address] [place] [address] Care Team Providers Care Process Control Operator Name Role Phone Vimal Shaw MD Unavailable Vimal Shaw MD Primary Care Provider [phone] Nela Munguia LEATHER WHITENER Unavailable [phone] Emergency Department Transitional Care Management (TCM) Status:Closed (Closed) Start date:01/15/2025 Enrollment date:01/16/2025 Enrollment reason:Identified using hospital discharge data End date:01/16/2025 Close reason:Assistance not needed Overview Discharged from [facility] ER on 01/15. Please contact within 2 days of discharge for ER SARAHI and schedule a follow-up appointment if needed. Continued Care and Services Coordination
--- OUTSIDE RECORDS SUMMARY | 2025-01-30 11:14 | XMS_ITS | Encounter Summary ---
Author Organization [facility] Address [address] [place] [address] Care Team Providers Care Binding Cutter Name Role Phone Vimal Shaw MD Unavailable [phone] Viaml Shaw MD Primary Care Provider [phone] Sommer Gonzalez NP Unavailable Nela Munguia STENCIL PRINTER Unavailable [phone] Encounter Details Date Type Department Care Team (Late st Contact Info) Description 09/23/2023 Abstract [facility] [address] [place] [address] Vimal Shaw MD [address] [place] [address] Social History Tobacco Use Types Packs/Day Years [...] [facility] [address] [place] [address] Nela Munguia NP [address] [place] [address] documented as of this encounter Visit Diagnoses Not on filedocumented in this encounter Care Teams Binding Cutter Relationship Specialty Start Date End Date Vimal Shaw MD [address] [place] [address] PCP - Medical [place] [employer] 10/23/22 05/24/99 Vimal Shaw MD [address] [place] [address] PCP - General Family Medicine 11/30/22 Sommer Gonzalez NP [address] [place] [address] Nurse Practitioner Family Medicine 07/22/23 09/03/24 Nela Munguia NP [address] [place] [address] Nurse Practitioner Pulmonary Disease 07/22/23 documented as of this encounter
--- OUTSIDE RECORDS SUMMARY | 2025-01-30 11:14 | XMS_ITS | Encounter Summary ---
Author Organization [facility] Address [address] [place] [address] Care Team Providers Care Choir Member Name Role Phone Vimal Shaw MD Unavailable [phone] Vimal Shaw MD Primary Care Provider [phone] Sommer Gonzalez NP Unavailable Nela Munguia FIELD SOFTWARE ENGINEER Unavailable [phone] Encounter Details Date Type Department Care Team (Late st Contact Info) Description 11/29/2022 Abstract [facility] [address] [place] [address] Vimal Shaw MD [address] [place] [address] Social History Tobacco Use Types Packs/Day Years Used Date Smoking Tobacco: Never Smokeless Tobacco: Current Tobacco Cessation:Ready to Q uit: Not Asked; Counseling Given: Not Answered Alcohol Use Standard Drinks/Week Comments Not Currently 0 (1 standard drink = 0.6 oz pure alcohol) caffeine: more than 4 cups a day AUDIT-C Answer Date Recorded Q1: How often do you have a drink containing alcohol? Never 12/01/2022 Q2: How many drinks containi ng alcohol do you have on a typical day when you are drinking? Patient does not drink Q3: How often do you have si x or more drinks on one occasion? Never 12/01/2022 PHQ-2 Answer Date Recorded Patient Health Questionnaire-2 Score 0 12/01/2022 Sex and Gender Information Value Date Recorded Sex Assigned at Not on file Legal Sex Male 7:16 PM EDT Gender Identity Male 08/06/2022 7:16 PM EDT Sexual Orientation Not on file documented as of this encounter Functional Status * Audit-C Score Answer Date of Assessment Author 0 12/01/2022 10:08 AM Cecile Walden MA * Question Answer Date of Assessment Author Q1: How often do you have a drink containing alcohol? Never 12/01/2022 10:08 AM Radha Walden MA Q2: How many drinks containing alcohol do you have on a typical day when you are drinking? Patient does not drink 12/01/2022 10:08 AM Cecile Walden MA Q3: How often do you have six or more drinks on one occasion? Never 12/01/2022 10:08 AM Radha Walden MA * Over the past 2 weeks, how often have you been bothered by any of the following problems? Question Answer Date of Assessment Author Little interest or pleasure in doing things Not at all 12/01/2022 10:14 AM Radha Walden MA Feeling down, depressed, or hopeless Not at all 12/01/2022 10:14 AM Radha Walden MA Patient Health Questionnaire-2 Score 0 12/01/2022 10:14 AM Amina Walden MA documented as of this encounter Plan of Treatment Upcoming Encounters Date Type Department Care Team (Late st Contact Info) Description 03/08/2025 1:20 PM EDT Office Visit [facility] [address] [place] [address] Nela Munguia NP [address] [place] [address] documented as of this encounter Visit Diagnoses Not on filedocumented in this encounter Care Teams Choir Member Relationship Specialty Start Date End Date Vimal Shaw MD [address] [place] [address] PCP - Medical [place] [employer] 10/23/22 05/24/99 Vimal Shaw MD [address] [place] [address] PCP - General Family Medicine 11/30/22 Sommer Gonzalez NP [address] [place] [address] Nurse Practitioner Family Medicine 07/22/23 09/03/24 Nela Munguia NP [address] [place] [address] Nurse Practitioner Pulmonary Disease 07/22/23 documented as of this encounter
--- OUTSIDE RECORDS SUMMARY | 2025-01-30 11:14 | XMS_ITS | Encounter Summary ---
Author Organization [facility] Address [address] [place] [address] Care Team Providers Care Data Examination Clerk Name Role Phone Vimal Shaw MD Unavailable [phone] Vimal Shaw MD Primary Care Provider [phone] Sommer Gonzalez NP Unavailable Nela Munguia HIGH SCALER Unavailable Encounter Details Date Type Department Care Team (Late st Contact Info) Description 08/26/2023 Abstract [facility] [address] [place] [phone] Vimal Shaw MD [address] [place] [address] Social History Tobacco Use Types Packs/Day Years [...] [facility] [address] [place] [address] Nela Munguia NP [address] [place] [phone] documented as of this encounter Visit Diagnoses Not on filedocumented in this encounter Care Teams Data Examination Clerk Relationship Specialty Start Date End Date Vimal Shaw MD [address] [place] [address] PCP - Medical [place] [employer] 10/23/22 05/24/99 Vimal Shaw MD [address] [place] [address] PCP - General Family Medicine 11/30/22 Sommer Gonzalez NP [address] [place] [address] Nurse Practitioner Family Medicine 07/22/23 09/03/24 Nela Munguia NP [address] [place] [place] [address] Nurse Practitioner Pulmonary Disease 07/22/23 documented as of this encounter
--- OUTSIDE RECORDS SUMMARY | 2025-01-30 11:14 | XMS_ITS | Encounter Summary ---
Author Organization [facility] Address [address] [place] [address] Care Team Providers Care Scaling Machine Operator Name Role Phone Vimal Shaw MD Unavailable [phone] Vimal Shaw MD Primary Care Provider [phone] Sommer Gonzalez NP Unavailable Nela Munguia MANAGER OF [employer]IRES SALES Unavailable Encounter Details Date Type Department Care Team (Late st Contact Info) Description 09/03/2023 Abstract [facility] [address] [place] [phone] Vimal Shaw MD [address] [place] [address] Social History Tobacco Use Types Packs/Day Years [...] [facility] [address] [place] [address] Nela Munguia NP [address] [place] [phone] documented as of this encounter Visit Diagnoses Not on filedocumented in this encounter Care Teams Scaling Machine Operator Relationship Specialty Start Date End Date Vimal Shaw MD [address] [place] [address] PCP - Medical [place] [employer] 10/23/22 05/24/99 Vimal Shaw MD [address] [place] [address] PCP - General Family Medicine 11/30/22 Sommer Gonzalez NP [address] [place] [address] Nurse Practitioner Family Medicine 07/22/23 09/03/24 Nela Munguia NP [address] [place] [address] Nurse Practitioner Pulmonary Disease 07/22/23 documented as of this encounter
--- OUTSIDE RECORDS SUMMARY | 2025-01-30 11:14 | XMS_ITS | Clinical Summary ---
Author Organization [facility] Address [address] [facility] [place] [address] Care Team Providers Care Manager Ob Name Role Phone Vimal Shaw MD Primary Care Provider [phone] Source Comments The following information is NOT included in Care Everywhere downloads:Psychiatric notes, ECG results, Cardiac Rehab notes, Pulmonary Function notes, data from [employer] (includes but not limited toPregnancy data,audiograms, eye exams, pre-surgical evaluation notes, well-child exam data).[facility] Allergies Active Allergy Reactions Criticality Noted Date Comments Ibuprofen Hives 04/03/2014 Medications amlodipine-benazep ril (LOTREL) 5-10 MG per capsule 03/14/2014 Acti ve Active Problems Problem Noted Date Diagnosed Date Sprain of MCP joint of hand 04/04/2014 Social History Tobacco Use Types Packs/Day Years Used Date Smoking Tobacco: Never Sex and Gender Information Value Date Recorded Sex Assigned at Not on file Legal Sex Male 12:46 PM EDT Gender Identity Not on file Sexual Orientation Not on file Plan of Treatment Health Maintenance Due Date Last Done Comments HIV Test 1998 Hepatitis C Antibody 2001 Tdap Booster 2001 Hepatitis A (HAV) Vaccine (optional start 19+ years) 2002 Hepatitis B (HBV) Vaccine (1 of 3 - 19+ 3-dose series) 2002 HPV Vaccine (optional start 27-45 years) 2010 Cholesterol 2018 COVID-19 Vaccine ( - 2023-2 5 season) 2025 Influenza Vaccine (#1) 2025 Shingles (RZV) Vaccine (1 of 2) 2033 Pneumococcal Vaccine(s) Aged Out No l onger eligible based on patient's age to complete this topic Insurance [employer] - HMO/PPO/POS Member Subscriber Plan / Payer (Ef fective 2014-Present) Name:Jamar Yu Relation to Subscriber:Self Name:Jamar Yu Payer ID:Not on file Type:PPO Address: [address] [place] [id number] Care Teams Manager Ob Relationship Specialty Start Date End Date Vimal Shaw MD [address] [place] [address] PCP - General Internal Medicine 03/15/14
--- OUTSIDE RECORDS SUMMARY | 2025-01-30 11:14 | XMS_ITS | Encounter Summary ---
Author Organization [facility] Address [address] [place] [address] Care Team Providers Care Fixed Wing Aircraft Crew Chief Name Role Phone Vimal Shaw MD Unavailable [phone] Vimal Shaw MD Primary Care Provider [phone] Nela Munguia SECURITIES SUPERVISOR Unavailable [phone] Reason for Visit * Reason Comments Med Refill Encounter Details Date Type Department Care Team (Late st Contact Info) Description 01/20/2025 Refill [facility] [address] [place] [phone] Nela Munguia SECURITIES SUPERVISOR [address] [place] [address] Spondylosis without myelopathy or radiculopathy, lumbosacral region [...] - Cecile De La Rosa MA - 01/24/2025 11:24 AM EDT Pt LM asking for tramadol to be refilled but I am not seeing where this has been sent in for him inthe past by us. Sending to provider for clarification. Pt does have an appointment with us on 01.26.25. documented in this encounter Plan of Treatment Upcoming Encounters Date Type Department Care Team (Late st Contact Info) Description 03/08/2025 1:20 PM EDT Office Visit [facility] [address] [place] [address] Nela Munguia NP [address] [place] [address] documented as of this encounter Visit Diagnoses Diagnosis Spondylosis without myelopathy or radiculopathy, lumbosacral region documented in this encounter Care Teams Fixed Wing Aircraft Crew Chief Relationship Specialty Start Date End Date Vimal Shaw MD [address] [place] [address] PCP - Medical [place] [employer] 10/23/22 05/24/99 Vimal Shaw MD [address] [place] [address] PCP - General Family Medicine 11/30/22 Nela Munguia NP [address] [place] [address] Nurse Practitioner Pulmonary Disease 07/22/23 documented as of this encounter
--- OUTSIDE RECORDS SUMMARY | 2025-01-30 11:14 | XMS_ITS | Encounter Summary ---
Author Organization [facility] Address [address] [place] [address] Care Team Providers Care Front Maker Lockstitch Name Role Phone Vimal Shaw MD Unavailable [phone] Vimal Shaw MD Primary Care Provider [phone] Sommer Gonzalez NP Unavailable Nela Munguia SALESPERSON WOMEN'S DRESSES Unavailable [phone] Encounter Details Date Type Department Care Team (Late st Contact Info) Description 08/28/2023 Abstract [facility] [address] [place] [address] Cecile De La Rosa MA Social History [...] 03/08/2025 1:20 PM EDT [facility] [address] [place] [address] Nela Munguia, SALESPERSON WOMEN'S DRESSES [address] [place] [address] documented as of this encounter Visit Diagnoses Not on filedocumented in this encounter Care Teams Front Maker Lockstitch Relationship Specialty Start Date End Date Vimal Shaw MD [address] [place] [address] PCP - Medical [place] [employer] 10/23/22 05/24/99 Vimal Shaw MD [address] [place] [address] PCP - General Family Medicine 11/30/22 Sommer Gonzalez NP [address] [place] [address] Nurse Practitioner Family Medicine 07/22/23 09/03/24 Nela Munguia NP [address] [place] [address] Nurse Practitioner Pulmonary Disease 07/22/23 documented as of this encounter
== END 2025-01-30 11:13 | disposition home or self-care (01) ==
LOC: RAD 11:12
PROVIDERS: PCP Family Medicine; Visit Provider Orthopaedic Surgery Orthopaedic Trauma
DX: M25.562 Pain in left knee (principal)
CPT/HCPCS: 73564